=== PATIENT | female | born 1995 | race Caucasian/White ===

== ENCOUNTER → 2020-08-07 13:58 | Outpatient (CLI) | payer MEDICAID, SELFPAY ==
--- NOTE | ~2020-08-07 | US_ITS ---
EXAMINATION: US OB >= 14 weeks Fetus DATE: 08/07/2020 14:27 INDICATION: Second trimester anatomic scan TECHNIQUE: Real-time ultrasound of the pelvis was performed. COMPARISON: None. FINDINGS: There is a single living fetus in vertex presentation. The placenta is anterior. heart rate is 148 beats per minute (bpm). cardiac activity and movement are noted. The amniotic fluid index is subjectively normal. The upper lip, spine, and heart are not well evaluated due to early gestation. The following an atomy was identified as normal: 3 vessel cord cord insertion kidneys urinary bladder stomach diaphragm ventricles cisterna magna cerebellum The following biometric data were obtained: Biparietal diameter (BPD): 3.4 cm; head circumference (HC): 12.7 cm; abdominal circumference (AC): 10 .5 cm; femur length (FL): 1.8 cm. These measurements are concordant. Estimated weight is 144 g +/- 21 g, which correlates with the <3rd percentile when 01/13/2021 is used as estimated date of delivery. As single measurements, these parameters are each equal to the following estimated gestational ages w ith ranges of +/- 2 standard deviations: BPD: 16 weeks 4 days ( 15 weeks 3 days - 17 weeks 6 days). HC: 16 weeks 3 days ( 15 weeks 2 days - 17 weeks 5 days). AC: 16 weeks 4 days ( 14 weeks 6 days - 18 weeks 1 days). FL: 15 weeks 4 days ( 14 weeks 1 days - 16 weeks 6 days). estimated gestational age based solely on measurements from this exam is 16 weeks 2 days +/- 1 weeks 1 days. IMPRESSION: 1. Single living fetus in vertex presentation. 2. Estimated weight is 144 g +/- 21 g, which correlates with the <3rd percentile when 01/13/2021 is used as estimated date of delivery. 3. Limited anatomic survey due to early gestation. Reviewed, dictated and finalized at location A. IMPRESSION: 1. Single living fetus in vertex presentation. 2. Estimated weight is 144 g +/- 21 g, which correlates with the <3rd per centile when 01/13/2021 is used as estimated date of delivery. 3. Limited anatomic survey due to early gestation.
== END ==
PROVIDERS: Visit Provider Obstetrics & Gynecology Gynecology
DX: Z36.87 Encounter for antenatal screening for uncertain dates (principal)
CPT/HCPCS: 76805

== ENCOUNTER 2020-09-01 12:54 | Outpatient (CLI) | payer OTHER, SELFPAY ==
--- NOTE | ~2020-09-01 | US_ITS ---
EXAMINATION: US OB /maternal detail DATE: 09/01/2020 13:36 INDICATION: Incomplete anatomic survey, second trimester TECHNIQUE: Real-time ultrasound of the pelvis was performed. COMPARISON: 08/07/2020 FINDINGS: There is a single living fetus in breech presentation. The placenta is anterior and 5.3 cm from the i nternal cervical os. heart rate is 157 beats per minute (bpm). cardiac activity and feta l movement are noted. The amniotic fluid index is subjectively normal. The spine and four-chamber hea rt are normal in appearance. The following biometric data were obtained: Biparietal diameter (BPD): 4.61 cm; head circumference (HC): 7.4 cm; abdominal circumference (AC): 16 .5 cm; femur length (FL): 3.1 cm. These measurements are concordant. Estimated weight is 366 g +/- 54 g, which correlates with the 32nd percentile when 01/13/2021 is used as estimated date of delivery. As single measurements, these parameters are each equal to the following estimated gestational ages w ith ranges of +/- 2 standard deviations: BPD: 20 weeks 0 days ( 18 weeks 2 days - 21 weeks 5 days). HC: 20 weeks 0 days ( 18 weeks 3 days - 21 weeks 3 days). AC: 21 weeks 4 days ( 19 weeks 4 days - 23 weeks 4 days). FL: 19 weeks 5 days ( 17 weeks 6 days - 21 weeks 4 days). estimated gestational age based solely on measurements from this exam is 20 weeks 2 days +/- 1 weeks 3 days. IMPRESSION: 1. Single living fetus in breech presentation. 2. Estimated weight is 366 g +/- 54 g, which correlates with the 32nd percentile when 01/13/2021 is used as estimated date of delivery. 3. Normal-appearing spine and four-chamber heart. Reviewed, dictated and finalized at location A. OMINER IMPRESSION: 1. Single living fetus in breech presentation. 2. Estimated weight is 366 g +/- 54 g, which correlates with the 32nd per centile when 01/13/2021 is used as estimated date of delivery. 3. Normal-appearing spine and four-chamber heart.
== END 2020-09-01 12:55 | disposition home or self-care (01) ==
PROVIDERS: Visit Provider Obstetrics & Gynecology Gynecology
DX: Z36.9 Encounter for antenatal screening, unspecified (principal); Z3A.20 20 weeks gestation of pregnancy
CPT/HCPCS: 76805

== ENCOUNTER 2020-09-11 12:11 | Observation (INO) | payer OTHER, SELFPAY ==
[2020-09-11 12:15] VITALS: BMI 40.8
[2020-09-11 12:32] VITALS: BP 120/67; PULSE 85
[2020-09-11 12:46] VITALS: BP 135/61; PULSE 94
[2020-09-11 13:01] VITALS: BP 119/60; PULSE 90
[2020-09-11 13:16] VITALS: BP 105/58; PULSE 87
--- NOTE | 2020-09-18 07:51 | PM.OBTRLD ---
OB - Triage/Final Diagnosis Visit Information Date of evaluation: 09/11/20 Reason for evaluation: other (lost mucus plug)
== END 2020-09-11 13:36 | disposition home or self-care (01) ==
PROVIDERS: Admitting Provider Obstetrics & Gynecology Gynecology; Visit Provider Obstetrics & Gynecology Gynecology
DX: O26.899 Other specified pregnancy related conditions, unspecified trimester (principal); Z3A.00 Weeks of gestation of pregnancy not specified
CPT/HCPCS: G0378; G0379

== ENCOUNTER 2020-10-26 17:24 | Observation (INO) | payer OTHER, SELFPAY ==
[2020-10-26 17:39] VITALS: BP 119/67; PULSE 80
[2020-10-26 17:46] VITALS: BP 123/71; PULSE 86; TEMP 36.5; BMI 39.9
--- NOTE | 2020-10-26 17:56 | OBADM ---
This patient, Leanne Geronimo, admitted to the OB room 116 at 1724 for observation for LUQ pain. Patient/family oriented to hospital policies and general routines including ID bracelet, bed and alarms, visiting hours, pain management, procedures, bathroom and other care routines, personal items, smoking policy, room service/diet, and visiting hours. Patient/Family are encouraged to report perceived risks to care and to ask questions if they do not understand what they are told or what they should do.
[2020-10-26 18:01] VITALS: BP 131/67; PULSE 84
[2020-10-26 18:16] VITALS: BP 109/68; PULSE 85
[2020-10-26] MEDS: FAMOTIDINE 20 MG TABLET PO (18:39)
[2020-10-26] MEDS: SIMETHICONE 80 MG TAB.CHEW PO (18:39)
--- NOTE | 2020-11-06 08:23 | PM.OBTRLD ---
OB - Triage/Final Diagnosis Final Diagnosis (1) GERD (gastroesophageal reflux disease): Code(s): K21.9 - Gastro-esophageal reflux disease without esophagitis Status: Acute (2) Epigastric abdominal pain during : Code(s): O26.899 - Other specified related conditions, unspecified trimester; R10.13 - Epigastric pain Status: Acute
== END 2020-10-26 19:43 | disposition home or self-care (01) ==
PROVIDERS: Admitting Provider Obstetrics & Gynecology; Visit Provider Obstetrics & Gynecology
DX: O26.893 Other specified pregnancy related conditions, third trimester (principal); K21.9 Gastro-esophageal reflux disease without esophagitis; R10.13 Epigastric pain; Z3A.28 28 weeks gestation of pregnancy
CPT/HCPCS: A9270; G0378; G0379

== ENCOUNTER 2020-10-29 09:43 | Outpatient (CLI) | payer OTHER, SELFPAY ==
--- NOTE | ~2020-10-29 | US_ITS ---
US OB follow up DATE: 10/29/2020 10:20 INDICATION: Size greater than dates TECHNIQUE: Real-time imaging and Doppler analysis COMPARISON: 09/01/2020 obstetrical ultrasound FINDINGS: Live garcia intrauterine gestation, fetus in vertex presentation, longitudinal lie. Feta l heart rate of 155 bpm. The placenta is anterior. Amniotic fluid index measures 14.6 cm. (5th percentile GRANT: 9.2 cm; 95th percentile GRANT: 23.1 cm) IMPRESSION: GRANT: 14.6 cm, within normal limits Vertex presentation Reviewed, dictated and finalized at Location A. Reviewed, dictated and finalized at location B. [employer]
== END 2020-10-29 09:44 | disposition home or self-care (01) ==
PROVIDERS: Visit Provider Obstetrics & Gynecology Gynecology
DX: O26.843 Uterine size-date discrepancy, third trimester (principal); Z3A.28 28 weeks gestation of pregnancy
CPT/HCPCS: 76816

== ENCOUNTER 2020-11-13 17:36 | Outpatient (NON) | payer OTHER, SELFPAY ==
[2020-11-13 17:43] VITALS: BMI 40.6
[2020-11-13 18:19] LABS: Collection Time Urine 24 HOURS
[2020-11-13 18:20] LABS: Total Volume 24 Hour Urine 1800 ml
[2020-11-13 18:21] LABS: Patient Weight 229 Lbs
[2020-11-13 18:34] LABS: Total Protein Urine 24 Hr 234 MG/DAY (28-141); Total Protein Urine Random 13 mg/dL
[2020-11-13 18:35] LABS: Creatinine Urine 86.3 mg/dL
[2020-11-16 17:37] LABS: Creatinine Clearance Urine 152.4 ml/min (75-125); Serum Creat 0.6
== END 2020-11-13 17:37 ==
PROVIDERS: Visit Provider Obstetrics & Gynecology
DX: O12.00 Gestational edema, unspecified trimester (principal); Z3A.00 Weeks of gestation of pregnancy not specified
CPT/HCPCS: 81050; 82575; 84156

== ENCOUNTER 2020-11-16 16:30 | Outpatient (CLI) | payer OTHER, SELFPAY ==
[2020-11-16 17:20] LABS: Basophils Percent Auto 0.4 % (0.2-1.2); Eosinophils Absolute Auto 0.1 K/mm3 (0-0.3); Eosinophils Percent Auto 1.5 % (0-4.4); Hemoglobin 11.9 g/dL (12.0-15.0); Immature Granulocyte Absolute 0.04 K/mm3 (0.00-0.031); Immature Granulocyte Percent A 0.5 % (0-0.5); Lymphocytes Absolute Auto 1.87 K/mm3 (0.9-3.2); Lymphocytes Percent Auto 23.6 % (18.3-44.2); Mean Corpuscular HGB Conc 33.1 g/dl (32-36); Mean Corpuscular Hemoglobin 29.6 pg (26-34); Mean Corpuscular Volume 89.6 fl (80-100); Mean Platelet Volume 11.7 fl (7.4-10.4); Monocytes Absolute Auto 0.4 K/mm3 (0.1-0.6); Monocytes Percent Auto 5.6 % (2.6-8.5); Neutrophils Absolute Auto 5.4 K/mm3 (1.3-6.7); Neutrophils Percent Auto 68.4 % (45.5-73.1); Platelet Count Result 172 k/mm3 (150-375); Red Blood Count 4.02 M/mm3 (4.2-5.4); Red Cell Distribution Width 13.6 % (11.5-14.5); White Blood Count 7.9 K/mm3 (4.5-10.0)
[2020-11-16 17:29] LABS: Hemoglobin A1C 5.1 % (<5.7)
[2020-11-16 17:34] LABS: Alanine Aminotransferase 16 U/L (4-35); Albumin Level 3.5 g/dL (3.5-5.1); Alkaline Phosphatase 85 U/L (38-126); Anion Gap 6 mmol/L (8-16); Aspartate Amino Transferase 21 U/L (14-36); Bilirubin,Total 0.7 mg/dL (0.2-1.3); Blood Urea Nitrogen 4 mg/dL (7-17); Calcium 9.8 mg/dL (8.4-10.2); Carbon Dioxide 25 mmol/L (22-30); Chloride 105 mmol/L (98-107); Estimated Glomerular Filt Rate > 60; Glucose 129 mg/dL (65-105); Lactate Dehydrogenase 331 U/L (313-618); Potassium 3.8 mmol/L (3.4-5.0); Sodium 136 mmol/L (137-145); Uric Acid 4.3 mg/dL (2.5-7.5)
[2020-11-16 18:06] LABS: Vitamin D 25 Hydroxy 39.6 ng/mL
[2020-11-16 18:13] LABS: HIV 1/2 Ab P24 Ag Result Negative (Negative)
== END 2020-11-16 17:15 | disposition home or self-care (01) ==
LOC: ANHOBOP 16:37 → ANHOBPP 16:39
PROVIDERS: Obstetrics & Gynecology; Visit Provider Obstetrics & Gynecology Gynecology
DX: Z34.92 Encounter for supervision of normal pregnancy, unspecified, second trimester (principal)
CPT/HCPCS: 36415; 80053; 82306; 83036; 83615; 84550; 85025; 86703; 99199; G0432

== ENCOUNTER 2020-11-21 18:48 | Outpatient (CLI) | payer OTHER, SELFPAY ==
[2020-11-21 19:13] VITALS: BP 112/60; PULSE 91
[2020-11-21 19:41] VITALS: PULSE 85
== END 2020-11-21 19:44 | disposition home or self-care (01) ==
LOC: ANHOBOP 18:53 → ANHLDR 18:55
PROVIDERS: Referring Provider Obstetrics & Gynecology Gynecology; Visit Provider Obstetrics & Gynecology Gynecology
DX: O26.893 Other specified pregnancy related conditions, third trimester (principal); Z3A.29 29 weeks gestation of pregnancy
CPT/HCPCS: 59025; 99199

== ENCOUNTER 2020-12-09 09:47 | Outpatient (CLI) | payer OTHER, SELFPAY ==
--- NOTE | ~2020-12-09 | US_ITS ---
EXAMINATION: US OB follow up DATE: 12/09/2020 10:42 INDICATION: Estimated size greater than expected for estimated gestational age during [facility] . TECHNIQUE: Real-time ultrasound of the pelvis was performed. The interpreting radiologist was not pre sent for the study. COMPARISON: None. FINDINGS: There is a single living fetus in vertex presentation. The placenta is anterior. heart rate is 134 beats per minute (bpm). The amniotic fluid volume is subjectively normal. The following biometric data were obtained: BPD: 9.2 cm -> 37 weeks 3 days Head circumference: 31.8 cm -> 35 weeks 6 days Abdominal circumference: 30.8 cm -> 34 weeks 5 days Femur length: 6.4 cm -> 33 weeks 0 days The femoral length to biparietal diameter ratio is greater than 2 standard deviations below the mean. Biometric data is otherwise concordant. Head circumference to abdominal circumference ratio: 1.03 (normal range 0.93-1.10). Estimated weight: 2481 g (+/-) 372 g. or 5 lbs. 8 oz. (+/-) 13 oz. IMPRESSION: 1. Single living fetus in vertex presentation with heart rate of 134 bpm. 2. Estimated weight is 37th percentile by Hadlock criteria when 01/13/2021 is used as the estima aly date of delivery (AZALEA). Please correlate with clinical information or earlier ultrasounds for mos t accurate AZALEA. 3. Femur length to biparietal diameter ratio slightly greater than 2 standard deviations below the me an. Reviewed, dictated and finalized at location A. [employer] IMPRESSION: 1. Single living fetus in vertex presentation with heart rate of 134 bpm. 2. Estimated weight is 37th percentile by Hadlock criteria when 01/13/2021 is used as the estimated date of delivery (AZALEA). Please correlate with clinica l information or earlier ultrasounds for most accurate AZALEA. 3. Femur length to biparietal diameter ratio slightly greater than 2 standard d eviations below the mean.
== END 2020-12-09 09:48 | disposition home or self-care (01) ==
LOC: ANHIMG 09:49
PROVIDERS: Visit Provider Obstetrics & Gynecology Gynecology
DX: O36.63X0 Maternal care for excessive fetal growth, third trimester, not applicable or unspecified (principal)
CPT/HCPCS: 76816

== ENCOUNTER 2020-12-16 05:02 | Observation (INO) | payer OTHER, SELFPAY ==
[2020-12-16 06:15] VITALS: BP 127/94; PULSE 84
[2020-12-16 06:27] VITALS: BP 122/80; PULSE 86
[2020-12-16 07:49] VITALS: BMI 40.8
--- NOTE | 2020-12-30 09:46 | PM.OBTRLD ---
OB - Triage/Final Diagnosis Visit Information Comments/Additional reasons for admission: I have assessed the risk for this patient, Leanne Geronimo, and determined that she would benefit from observation care. Final Diagnosis (1) contractions: Code(s): O47.9 - False labor, unspecified Status: Acute
== END 2020-12-16 08:00 | disposition home or self-care (01) ==
PROVIDERS: Admitting Provider Obstetrics & Gynecology; Visit Provider Obstetrics & Gynecology
DX: O47.03 False labor before 37 completed weeks of gestation, third trimester (principal); Z3A.36 36 weeks gestation of pregnancy
CPT/HCPCS: 84112; G0378; G0379

== ENCOUNTER 2020-12-20 15:10 | Outpatient (CLI) | payer OTHER, SELFPAY ==
[2020-12-20 16:00] VITALS: BP 135/66; PULSE 93
--- NOTE | 2020-12-20 16:11 | PC.NURSE ---
1520- Patient states she felt like something swollen near vagina opening. SVE 2 cm. No swelling noted. Patient states that pressure is felt more when she is standing, decreases when she lays dowm. 1525- Spoke with Dr. Walker, orders to discharge to home.
== END 2020-12-20 16:10 | disposition home or self-care (01) ==
LOC: ANHOBOP 16:06
PROVIDERS: Visit Provider Obstetrics & Gynecology Gynecology
DX: O42.90 Premature rupture of membranes, unspecified as to length of time between rupture and onset of labor, unspecified weeks of gestation (principal); Z3A.00 Weeks of gestation of pregnancy not specified
CPT/HCPCS: 59025; 84112

== ENCOUNTER 2020-12-21 18:03 | Outpatient (RCR) | payer OTHER, SELFPAY ==
[2020-11-27 15:36] VITALS: BP 122/66; PULSE 88
[2020-12-06 11:37] LABS: Basophils Percent Auto 0.3 % (0.2-1.2); Eosinophils Absolute Auto 0.1 K/mm3 (0-0.3); Eosinophils Percent Auto 1.5 % (0-4.4); Hematocrit 34.7 % (37.0-47.0); Hemoglobin 11.3 g/dL (12.0-15.0); Immature Granulocyte Absolute 0.03 K/mm3 (0.00-0.031); Immature Granulocyte Percent A 0.4 % (0-0.5); Lymphocytes Absolute Auto 1.91 K/mm3 (0.9-3.2); Lymphocytes Percent Auto 25.6 % (18.3-44.2); Mean Corpuscular HGB Conc 32.6 g/dl (32-36); Mean Corpuscular Hemoglobin 29.2 pg (26-34); Mean Corpuscular Volume 89.7 fl (80-100); Mean Platelet Volume 12.5 fl (7.4-10.4); Monocytes Absolute Auto 0.4 K/mm3 (0.1-0.6); Neutrophils Percent Auto 67.2 % (45.5-73.1); Platelet Count Result 149 k/mm3 (150-375); Red Blood Count 3.87 M/mm3 (4.2-5.4); Red Cell Distribution Width 13.9 % (11.5-14.5); White Blood Count 7.5 K/mm3 (4.5-10.0)
[2020-12-06 11:51] VITALS: BP 128/68; PULSE 88
[2020-12-14 17:59] VITALS: BP 123/72; PULSE 94
[2020-12-21 18:11] VITALS: BP 110/70; PULSE 89
== END 2021-01-01 07:56 | disposition home or self-care (01) ==
LOC: ANHOBOP 18:03
PROVIDERS: Visit Provider Obstetrics & Gynecology Gynecology
DX: P59.9 Neonatal jaundice, unspecified (principal)
CPT/HCPCS: 36415; 59025; 84112; 85025

== ENCOUNTER 2020-12-28 06:34 | Observation (INO) | payer OTHER, SELFPAY ==
--- NOTE | 2020-12-28 10:11 | OBADM ---
This patient, Leanne Geronimo, admitted to the OB room Labor/Delivery/Recovery 105 for observation. Patient/family oriented to hospital policies and general routines including ID bracelet, bed and alarms, visiting hours, pain management, procedures, bathroom and other care routines, personal items, smoking policy, room service/diet, call light, and visiting hours. Patient/Family are encouraged to report perceived risks to care and to ask questions if they do not understand what they are told or what they should do.
--- NOTE | 2021-01-01 09:48 | PM.OBTRLD ---
OB - Triage/Final Diagnosis Visit Information Reason for evaluation: threatened labor Comments/Additional reasons for admission: I have assessed the risk for this patient, Leanne Geronimo, and determined that she would benefit from observation care.
== END 2020-12-28 09:40 | disposition home or self-care (01) ==
PROVIDERS: Admitting Provider Obstetrics & Gynecology Gynecology; Visit Provider Obstetrics & Gynecology Gynecology
DX: O47.1 False labor at or after 37 completed weeks of gestation (principal); Z3A.37 37 weeks gestation of pregnancy
CPT/HCPCS: G0378; G0379

== ENCOUNTER 2020-12-30 16:15 | Observation (INO) | payer OTHER, SELFPAY ==
[2020-12-30 17:16] VITALS: BP 147/86; PULSE 88
[2020-12-30 17:21] VITALS: BMI 42.6
[2020-12-30 17:31] VITALS: BP 144/79; PULSE 97
[2020-12-30 17:33] LABS: Add Urine Microscopic? YES; Appearance Urine Cloudy (Clear); Bacteria Urine 2+ /hpf; Bilirubin Urine Negative (Negative); Blood Urine Negative (Negative); Calcium Oxalate Crystals Urine Present /hpf; Color Urine Yellow (Yellow); Glucose Urine UA Negative (Negative); Ketones Urine Negative (Negative); Leukocyte Esterase Ur 3+ LEU/UL (Negative); Mucus Urine Rare /lpf; Nitrate Urine Negative (Negative); Protein Urine 1+ mg/dL (Negative); RBC Urine 51-75 /hpf (0-2); Specific Grav Ur 1.015 (1.001-1.035); Squamous Epithelial Cell Urine Many /hpf (Few); Urobilinogen Urine Negative mg/dL (<2.0); WBC Urine >75 /hpf
[2020-12-30 17:46] VITALS: BP 139/80; PULSE 90
[2020-12-30 18:06] VITALS: BP 132/76; PULSE 87
[2020-12-30 18:07] VITALS: BP 132/76; PULSE 87
[2020-12-30 18:16] VITALS: BP 129/80; PULSE 92
--- NOTE | 2021-02-05 01:56 | PM.OBTRLD ---
OB - Triage/Final Diagnosis Visit Information Comments/Additional reasons for admission: I have assessed the risk for this patient, Leanne Geronimo, and determined that she would benefit from observation care. Evaluation Laboratory results: Laboratory Tests 12/30/20 17:00 Urine Color Yellow Urine Appearance Cloudy H Urine pH 7.0 Ur Specific [place] 1.015 Urine Protein 1+ H Urine Glucose (UA) Negative Urine Ketones Negative Ur Blood (Man) Negative Urine Nitrate Negative Urine Bilirubin Negative Urine Urobilinogen Negative Leukocyte Esterase Rfl 3+ H Urine RBC 51-75 H Urine WBC >75 H Ur Squamous Epith Cells Many H Calcium Oxalate Crystal Present Urine Bacteria 2+ H Urine Mucus Rare Final Diagnosis (1) False labor: Code(s): O47.9 - False labor, unspecified Status: Acute
== END 2020-12-30 18:35 | disposition home or self-care (01) ==
PROVIDERS: Admitting Provider Obstetrics & Gynecology; Visit Provider Obstetrics & Gynecology
DX: O47.1 False labor at or after 37 completed weeks of gestation (principal); Z3A.38 38 weeks gestation of pregnancy
CPT/HCPCS: 81001; 84112; 87086; 87088; G0378; G0379

== ENCOUNTER 2020-12-31 03:05 | Inpatient (IN) | payer OTHER, SELFPAY ==
[2020-12-31] VITALS (46 sets, daily range): BP systolic 117–150; BP diastolic 59–83; PULSE 66–101; RESP 16–18; TEMP 36.6–37.2; O2SAT 94–100
[2020-12-31 04:43] LABS: Glucose Point of Care 88 (65-105)
[2020-12-31 05:17] LABS: Basophils Percent Auto 0.2 % (0.2-1.2); Eosinophils Absolute Auto 0.1 K/mm3 (0-0.3); Eosinophils Percent Auto 0.7 % (0-4.4); Hemoglobin 10.6 g/dL (12.0-15.0); Immature Granulocyte Absolute 0.05 K/mm3 (0.00-0.031); Immature Granulocyte Percent A 0.4 % (0-0.5); Lymphocytes Absolute Auto 1.76 K/mm3 (0.9-3.2); Lymphocytes Percent Auto 14.4 % (18.3-44.2); Mean Corpuscular HGB Conc 32.1 g/dl (32-36); Mean Corpuscular Hemoglobin 27.5 pg (26-34); Mean Corpuscular Volume 85.5 fl (80-100); Mean Platelet Volume 12.9 fl (7.4-10.4); Neutrophils Absolute Auto 9.3 K/mm3 (1.3-6.7); Neutrophils Percent Auto 76.3 % (45.5-73.1); Platelet Count Result 139 k/mm3 (150-375); Red Blood Count 3.86 M/mm3 (4.2-5.4); Red Cell Distribution Width 14.2 % (11.5-14.5); White Blood Count 12.2 K/mm3 (4.5-10.0)
[2020-12-31 05:33] LABS: Amphetamine Screen Urine Negative (Negative); Barbiturate Screen Urine Negative (Negative); Benzodiazepines Screen Urine Negative (Negative); Cannabinoid Screen Urine Negative (Negative); Cocaine Screen Urine Negative (Negative); Methadone Screen Urine Negative (Negative); Opiate Screen Urine Negative (Negative); Phencyclidine Screen Urine Negative (Negative)
[2020-12-31] MEDS: LACTATED RINGERS 1,000 ML 125 ML IV CONT ×2 (06:12→06:27)
[2020-12-31] MEDS: OXYTOCIN 30 UNITS/NS 500 ML 30 UNITS/500 ML BAG 999 UNITS IV CONT (08:56)
[2020-12-31 09:06] LABS: Rapid Plasma Reagin Non-Reactive (NonReactive)
[2020-12-31] MEDS: OXYTOCIN 30 UNITS/NS 500 ML 30 UNITS/500 ML BAG 125 UNITS IV CONT (09:09)
--- NOTE | 2020-12-31 09:10 | P.PCNOB_ITS ---
OB - Delivery Note Procedure Delivery date: 12/31/20 Procedure: events: Gestational Diabetes Intrapartal events: None Induction method: none Delivery monitor: external FHT and external uterine Route of delivery: Laceration Description: None Quantitative Blood Loss (ml): 120 Anesthesia type: Epidural Disposition: floor [place] Baby Date of : 12/31/20 Time of : 08:52 Weeks of gestation at delivery: 38 Infant gender: Male Weight (pounds): 8 Weight (ounces): 10 presentation: vertex position: Left Occiput Anterior Placenta delivery description: Spontaneous cord vessel description: 3 Vessels and Clamped/Cut score one minute: 8 score five minutes: 8
--- NOTE | 2020-12-31 09:14 | WPDOBADMIT ---
Obstetrics - Admit Note Admission Note: Patient complete and plus 0 station. record reviewed. No pertinent additions to the history and/or any subsequent changes in the physical findings that are not consistent with the expected course of the were found. Additions to the history and/or subsequent changes in the physical findings follow. None.
--- NOTE | 2020-12-31 09:19 | LDADM ---
This patient, Leanne Geronimo, was admitted to Labor/Delivery/Recovery 105 on 12/31/20 at 03:05. Plans for labor, pain management and were discussed with patient. Patient/family oriented to hospital policies and general routines including ID bracelet, bed and alarms, visiting hours, pain management, procedures, bathroom and other care routines, personal items, smoking policy, room service/diet and guest tray routines, infant security routines, and visiting hours. Patient/Family are encouraged to report perceived risks to care and to ask questions if they do not understand what they are told or what they should do. See OBIX for further documentation.
[2020-12-31] MEDS: IBUPROFEN 600 MG TABLET PO (12:33)
--- NOTE | 2020-12-31 18:46 | OBPPTRN ---
1153 Patient transferred to post room #279 via W/C. Support person present. Oriented to unit, room, information board, rooming in, admission packet and security measures. Patient verbalizes understanding.
--- NOTE | 2021-02-05 01:53 | PM.OBDSVD ---
DS: Admitting Diagnosis Admitting Diagnosis Admitting Diagnosis: labor DS: Discharge Diagnosis Discharge Diagnosis (1) (normal spontaneous vaginal delivery): Code(s): O80 - Encounter for full-term uncomplicated delivery Status: Acute OB - DS: Summary OB Procedures : NST and Ultrasound OB Procedures Intrapartum: Spontaneous Vag Delivery OB Procedures: : None Peripartum Data Infant Delivery Method: Natural Vaginal Laceration Description: None complications: none Status at Discharge Functional status at discharge: independent ambulation Overall status at discharge: patient is progressing back to baseline Time Spent with Patient Time attestation: Total time spent providing and/or coordinating discharge services: Discharge Plan Discharge Attending physician on discharge: Derick Santana Consulting providers: Nacho Pierson Discharging Clinician: Derick Santana Patient Disposition: Home, Self-Care Activity: may shower, as tolerated and pelvic rest Diet: as tolerated and heart healthy Discharge Instructions: Education: Mom and Baby Guide Given to: Mother Follow-Up: Call your delivering provider's office for an appointment to be seen in: 6 Weeks Mom and baby should come to the [facility] for the follow-up appointment. Appointment Date/Time: January 03, 2021 at 9:00 am What to expect at your follow-up visit: Physical Assessment Call [phone] if you are unable to keep your appointment time. BREAST CARE: * Wear a snug supportive bra. * For engorgement discomfort: Breast Feeding: * Apply warm moist washcloths * Express milk as needed to relieve engorgement * Wear loose clothing Bottle Feeding: * May apply ice packs * For sore nipples: * Identify correct latch-on * Apply warm moist washcloths before and after nursing * Air dry nipples after nursing * May apply Lansinoh cream to nipples EPISIOTOMY/PERINEAL CARE: * Until bleeding stops, use your valorie bottle after urinating * Change your pad frequently throughout the day * You may take sitz baths several times a day (fill your bathtub with warm water and soak for 20 minutes.) Do NOT bathe in the water * No tub baths until seen by your physician - You may shower ACTIVITY: * Rest as much as possible. * Do not exercise or lift anything heavier than your baby (such as laundry or other children.) * Avoid stairs or driving as much as possible. * Do not put anything into the vagina. No douching, tampons, or sexual activity until seen by physician. NOTIFY PHYSICIAN IF YOU HAVE ANY QUESTIONS OR IF ANY OF THE FOLLOWING SYMPTOMS OCCUR: * If your episiotomy or incision becomes red, swollen, or more painful than what you have experienced in the hospital. * If your vaginal bleeding becomes foul smelling. * If your vaginal bleeding becomes more heavy than a period or if your bleeding changes from pink to bright red. However, you may pass an occasional walnut-sized clot once or twice for the first week . * If you experience a sharp, shooting pain in you calves. * If you discover a hard, reddened area on your breast or if you experience flu-like symptoms. DIET: * Eat regular, well-balanced meals. * Drink plenty of fluids daily. If , drink to thirst. Patient Instructions: Antibiotic Form Stand Alone Forms: General Discharge Information Follow-up/Referrals: Derick Santana MD [Physician] - Discharge Medications: Continued hydroxyzine HCl 25 mg tablet 25 mg PO BID PRN (Reason: Anxiety) RF: 0 ergocalciferol (vitamin D2) 1,250 mcg (50,000 unit) capsule 50,000 unit PO Q7D RF: 0 Flintstones Gummies Tablet,Chewable 2 tablet PO DAILY RF: 0 cephalexin [Keflex] 750 mg Capsule 500 mg PO Q12H Qty: 14 RF: 0 Discontinued Humulin N NPH U-100 I
== END 2020-12-31 22:40 | disposition home or self-care (01) | DRG 560 ==
LOC: ANHLDR 04:05 → ANHOB2 21:56 → ANHLDR 01-02 11:56 → ANHOB2 01-02 11:56
PROVIDERS: Obstetrics & Gynecology Gynecology; Admitting Provider Obstetrics & Gynecology; Visit Provider Obstetrics & Gynecology
DX: O24.429 Gestational diabetes mellitus in childbirth, unspecified control (principal); Z3A.49 Greater than 42 weeks gestation of pregnancy; Z37.0 Single live birth
CPT/HCPCS: 36415; 80307; 82948; 84112; 85014; 85018; 85025; 86592; 86850; 86900; 86901; A9270; J2590; J2795; J7120